=== PATIENT | female | born 1965 | race Hispanic/Latino ===

== ENCOUNTER 2024-07-21 21:30 | Emergency (ER) | payer BC ==
[~2024-07-21] VITALS: Ht 157.5 cm; Wt 73.9 kg
[2024-07-21 22:02] VITALS: TEMP 98.3
[2024-07-21 22:13] LABS: BASOPHILS % 0.4 % (0.0-1.0); EOSINOPHILS # (AUTO) 0.1 (0.0-0.4); EOSINOPHILS % 1.1 % (0.0-6.0); HEMATOCRIT 42.6 % (34.2-44.1); HEMOGLOBIN 14.8 g/dL (12.0-16.0); LYMPHOCYTES # (AUTO) 2.2 (1.0-3.2); LYMPHOCYTES % 25.4 % (18.0-39.1); MEAN CORPUSCULAR HEMOGLOBIN 29.6 pg (28-32); MEAN CORPUSCULAR HGB CONC 34.7 g/dL (31-35); MEAN CORPUSCULAR VOLUME 85.2 fL (81-99); MONOCYTES # (AUTO) 0.5 (0.2-0.8); MONOCYTES % 6.3 % (4.4-11.3); NEUTROPHILS # (AUTO) 5.7 (2.1-6.9); NEUTROPHILS % 66.6 % (38.7-80.0); PLATELET COUNT 244 x10e3/uL (140-360); RED CELL DISTRIBUTION WIDTH 11.9 % (11.7-14.4); WHITE BLOOD COUNT 8.51 x10e3/uL (4.8-10.8)
[2024-07-21 22:26] LABS: ALBUMIN 4.7 g/dL (3.5-5.0); ALBUMIN/GLOBULIN RATIO 1.3 (0.8-2.0); ANION GAP 18.7 mmol/L (8-16); BILIRUBIN,TOTAL 0.4 mg/dL (0.2-1.2); CALCIUM 10.3 mg/dL (8.4-10.2); CREATININE, SERUM 0.84 mg/dL (0.57-1.11); POTASSIUM 3.7 mmol/L (3.5-5.1); TOTAL PROTEIN 8.3 g/dL (6.5-8.1)
[2024-07-21 22:30] VITALS: PULSE 85; RESP 20
[2024-07-21] MEDS: ONDANSETRON HCL INJ 2MG/ML 2ML 2 MG/ML VIAL IV STA (23:06)
[2024-07-21] MEDS: SODIUM CHLORIDE FLUSH 10 ML SYR IV PRN (23:17)
[2024-07-21] MEDS: KETOROLAC TROMETHAMINE 30 MG/ML VIAL IV STA (23:17)
[2024-07-22] MEDS ORDERED: PANTOPRAZOLE SO40 MG PO (01:01)
[2024-07-22] MEDS ORDERED: ONDANSETRON ODT4 MG SL (01:01)
[2024-07-22] MEDS ORDERED: DICYCLOMINE HCL20 MG PO (01:01)
[2024-07-22 01:16] VITALS: BP 117/92; PULSE 84; RESP 18; TEMP 98.1; O2SAT 100
== END 2024-07-22 01:18 | disposition home or self-care (01) ==
LOC: ER 21:41
DX: R10.11 Right upper quadrant pain (principal); K80.20 Calculus of gallbladder without cholecystitis without obstruction; Z85.828 Personal history of other malignant neoplasm of skin
CPT/HCPCS: 36415; 76705; 80053; 83690; 84484; 85025; 99283; J1885; J2405; J2470; 93005

== ENCOUNTER 2024-07-28 13:11 | Emergency (ER) | payer BC ==
[~2024-07-28] VITALS: Ht 157.5 cm; Wt 73.9 kg
[~2024-07-28 13:11] MED LIST: DICYCLOMINE HCL20 MG PO; ONDANSETRON ODT4 MG SL; PANTOPRAZOLE SO40 MG PO
[2024-07-28] MEDS ORDERED: ONDANSETRON HCL INJ 2MG/ML 2ML 2 MG/ML VIAL ONE (13:27)
[2024-07-28] MEDS: ONDANSETRON HCL INJ 2MG/ML 2ML 2 MG/ML VIAL IV PRN (13:31)
[2024-07-28] MEDS: SODIUM CHLORIDE 0.9% 1000ML 1,000 ML IV STA (13:32)
[2024-07-28] MEDS: Morphine 4mg INJECTION 4 MG/ML INJ IV ONE ×2 (13:35→15:21)
[2024-07-28 14:06] LABS: BASOPHILS % 0.2 % (0.0-1.0); HEMATOCRIT 44.9 % (34.2-44.1); HEMOGLOBIN 15.8 g/dL (12.0-16.0); LYMPHOCYTES # (AUTO) 0.9 (1.0-3.2); LYMPHOCYTES % 7.1 % (18.0-39.1); MEAN CORPUSCULAR HEMOGLOBIN 29.3 pg (28-32); MEAN CORPUSCULAR HGB CONC 35.2 g/dL (31-35); MEAN CORPUSCULAR VOLUME 83.3 fL (81-99); MONOCYTES # (AUTO) 0.4 (0.2-0.8); MONOCYTES % 3.3 % (4.4-11.3); NEUTROPHILS # (AUTO) 11.2 (2.1-6.9); NEUTROPHILS % 89.1 % (38.7-80.0); PLATELET COUNT 313 x10e3/uL (140-360); RED BLOOD COUNT 5.39 x10e6/uL (3.6-5.1); RED CELL DISTRIBUTION WIDTH 11.7 % (11.7-14.4); WHITE BLOOD COUNT 12.54 x10e3/uL (4.8-10.8)
[2024-07-28 14:22] LABS: INR 0.94; PROTHROMBIN TIME 13.1 seconds (11.9-14.5)
[2024-07-28 14:23] LABS: PARTIAL THROMBOPLASTIN TIME 27.4 seconds (23.8-35.5)
[2024-07-28 14:30] LABS: ALBUMIN 4.7 g/dL (3.5-5.0); ALBUMIN/GLOBULIN RATIO 1.5 (0.8-2.0); ANION GAP 19.7 mmol/L (8-16); BILIRUBIN,TOTAL 2.2 mg/dL (0.2-1.2); CALCIUM 10.1 mg/dL (8.4-10.2); CREATININE, SERUM 0.85 mg/dL (0.57-1.11); POTASSIUM 3.7 mmol/L (3.5-5.1); TOTAL PROTEIN 7.8 g/dL (6.5-8.1)
[2024-07-28] MEDS ORDERED: IOPAMIDOL 370 MG/ML 100 ML INFUS..BTL INJ ONE (14:37)
[2024-07-28] MEDS: ONDANSETRON HCL INJ 2MG/ML 2ML 2 MG/ML VIAL IV STA (15:01)
[2024-07-28] MEDS: SODIUM CHLORIDE 0.9% IV SCH (15:02)
[2024-07-28] MEDS: CEFTRIAXONE 2 GM in SODIUM CHLORIDE 0.9% 100 ML IV ONE (16:19)
[2024-07-28 16:30] VITALS: TEMP 98.6
[2024-07-28] MEDS: METRONIDAZOLE 750MG/NS 150ML 150 ML IV SCH (17:49)
[2024-07-28 20:30] VITALS: PULSE 111; RESP 18; O2SAT 97
== END 2024-07-28 21:08 | disposition other institution (70) ==
LOC: ER 13:23
DX: R10.11 Right upper quadrant pain (principal); K80.50 Calculus of bile duct without cholangitis or cholecystitis without obstruction; K85.10 Biliary acute pancreatitis without necrosis or infection; Z85.828 Personal history of other malignant neoplasm of skin
CPT/HCPCS: 36415; 74177; 80053; 83605; 83690; 85025; 85610; 85730; 87040; 99284; J0696; J2270; J2405; J7030; J7050; Q9967; 93005

== ENCOUNTER → 2024-09-06 | Outpatient (REF) | payer BC | LOC: MAMMO 15:45 | PROVIDERS: ATTEND Specialist | DX: Z12.31 Encounter for screening mammogram for malignant neoplasm of breast (principal) | CPT/HCPCS: 77067 ==